=== PATIENT | female | born 1950 | race Caucasian/White ===

== ENCOUNTER 2017-04-10 13:26 | Observation (INO) | payer MEDICARE, MEDICAID ==
--- NOTE | 2017-04-10 14:02 | Emergency Department Record ---
History of Present Illness - General Chief Complaint: Dizziness Stated Complaint: DIZZINESS Time Seen by Provider: 04/10/17 13:41 Source: Patient Mode of Arrival: EMS Limitations: No limitations - History of Present Illness Initial Comments: The patient is here due to having a possible syncopal episode at home today just about an hour ago. She was feeling weak at home and had been in and out of the bathroom because she felt that she may need to have a BM or urinate and then woke up on the floor. The event was not witnessed. The patient had been feeling weak prior but denied any CP, SOB, ALMENDAREZ, or visual changes. After waking up the patient noticed she had been incontinent of urine and has had urinary pressure for a couple of weeks off and on. She denies any recent CP, SOB, ROBINSON, fever, or confusion. The patient does not think she hit her head with the event and denies any head pain or new neck pain. MD Complaint: Lightheadedness, Near syncope Onset/Timin -: Hour(s) Timing: Unsure Description: Other Improves With: Nothing Worsens With: Nothing Associated Symptoms: Weakness - [place] Coma Scale Eye Response: (4) Open spontaneously Motor Response: (6) Obeys commands Verbal Response: (5) Oriented Juan Pablo Total: 15 - Related Data Home Medications Medication Instructions Recorded Confirmed Last Taken Alprazolam 1 mg PO TID 04/10/17 04/10/17 04/10/17 Atenolol 100 mg PO DAILY 04/10/17 04/10/17 04/10/17 Atorvastatin Calcium [Lipitor] 20 mg PO DAILY 04/10/17 04/10/17 04/10/17 Cholecalciferol (Vitamin D3) 1,000 unit PO DAILY 04/10/17 04/10/17 04/10/17 [Vitamin D3] Clonidine HCl 0.2 mg PO DAILY 04/10/17 04/10/17 04/10/17 Clopidogrel Bisulfate [Clopidogrel] 75 mg PO DAILY 04/10/17 04/10/17 04/10/17 Hydrocodone/Acetaminophen [Sparks 1 each PO ASDIR 04/10/17 04/10/17 Unknown 10-325 Tablet] Spironolactone [Aldactone] 50 mg PO BID 04/10/17 04/10/17 04/10/17 Vilazodone HCl [Viibryd] 40 mg PO DAILY 04/10/17 04/10/17 04/10/17 Allergies Allergy/AdvReac Type Severity Reaction Status Date / Time amoxicillin [From Augmentin] Allergy PT UNSURE Verified 04/10/17 13:47 OF REACTION azithromycin [From Zithromax] Allergy PT UNSURE Verified 04/10/17 13:47 OF REACTION clavulanic acid Allergy PT UNSURE Verified 04/10/17 13:47 [From Augmentin] OF REACTION epinephrine Allergy PT UNSURE Verified 04/10/17 13:47 OF REACTION Iodinated Contrast- Oral and Allergy PT UNSURE Verified 04/10/17 13:47 IV Dye OF REACTION Sulfa (Sulfonamide Allergy PT UNSURE Verified 04/10/17 13:47 Antibiotics) OF REACTION Travel Screening - Travel/Exposure Within Last 30 Days Have you traveled within the last 30 days?: No Review of Systems Constitutional: Denies: Chills, Fever Eyes: Denies: Eye discharge ENT: Denies: Congestion Respiratory: Denies: Cough, Dyspnea Past Medical History - SOCIAL HISTORY Smoking Status: Current every day smoker Alcohol Use: Occasional Drug Use: None - RESPIRATORY Hx Respiratory Disorders: No - CARDIOVASCULAR Hx Cardio Disorders: Yes Hx Chest Pain: Yes (unstable angina) Hx Hypertension: Yes Comment:: CAD, high cholesterol - NEURO Hx Neuro Disorders: Yes Hx Seizures: Yes - GI Hx GI Disorders: Yes Hx Reflux: Yes - Hx Genitourinary Disorders: Yes Comment:: incontinent; frequency x 2weeks - ENDOCRINE Hx Endocrine Disorders: No - MUSCULOSKELETAL Hx Musculoskeletal Disorders: Yes Hx Arthritis: Yes - PSYCH Hx Psych Problems: Yes Hx Anxiety: Yes Hx Depression: Yes - HEMATOLOGY/ONCOLOGY Hx Hematology/Oncology Disorders: No Family Medical History Any Significant Family History?: Yes Hx Cancer: Brother/Sister Hx Heart Disease: Father, Mother Physical Exam - General General Appearance: Alert, Oriented x3, Cooperative, No acute distress - Head Head exam: Atraumatic, Normocephalic, Normal inspection - Eye Eye exam: Normal appearance, PERRL - ENT Throat exam: Normal inspection. negative: Tonsillar erythema, Tonsillar exudate - Neck Neck exam: Normal inspection, Full ROM. negative: Tenderness - Respiratory Respiratory exam: Normal lung sounds bilaterally. negative: Respiratory distress - Cardiovascular Cardiovascular Exam: Regular rate, Normal rhythm, Normal heart sounds - GI/Abdominal GI/Abdominal exam: Soft, Normal bowel sounds. negative: Tenderness - Extremities Extremities exam: Normal inspection, Full ROM, Normal capillary refill. negative: Tenderness - Neurological Neurological exam: Alert, Oriented X3. negative: Altered, Motor sensory deficit - Psychiatric Psychiatric exam: negative: Anxious, Depressed - Skin Skin exam: negative: Rash Course Vital Signs 04/10/17 13:38 Temperature 97.7 F Pulse Rate 72 Respiratory 16 Rate Blood Pressure 137/72 Pulse Ox 99 - Reevaluation(s) Reevaluation #1: The patient is doing very well at this time. She is resting comfortably and denies any CP, SOB, ALMENDAREZ or ROBINSON. I did discuss the lab and EKG results with her and the need for admission and she does agree. 04/10/17 15:10 Medical Decision Making - Data Complexity MDM Data: Labs Ordered and/or Reviewed, X-Ray Ordered and/or Reviewed, EKG Ordered and/or Reviewed - Lab Data Result diagrams: 04/10/17 14:15 04/10/17 14:15 - EKG Data -: EKG Interpreted by Me EKG: No Acute Changes, Unchanged From Previous - Radiology Data Radiology results: Report reviewed (Head CT: Neg for any acute changes. CXR: Neg for acute changes.) Disposition Disposition: Admit Clinical Impression: Syncope and collapse Disposition: Still a Patient at [facility] Decision to Admit: Admit from ER Decision to Admit Date: 04/10/17 Decision to Admit Time: 15:48 Accepting Physician: Marylin Time Discussed w/Accepting Physician: 15:48 Condition: (2) Stable Time of Disposition: 15:48 Quality - Quality Measures Quality Measures: N/A - Blood Pressure Screening View Details: Yes Does Patient Have Any of the Following: No Blood Pressure Classification: Pre-Hypertensive BP Reading Systolic Measurement: 137 Diastolic Measurement: 72 Screening for High Blood Pressure: < Pre-Hypertensive BP, F/U Documented > [ [id number]] Pre-Hypertensive Follow-up Interventions: Referral to alternative/primary care provider.
[2017-04-10 14:31] LABS: URINE APPEARANCE SL CLOUDY; URINE BILIRUBIN SMALL (NEGATIVE); URINE BLOOD TRACE-I (NEGATIVE); URINE COLOR YELLOW; URINE GLUCOSE (UA) NEGATIVE (NEGATIVE); URINE KETONE TRACE (NEGATIVE); URINE LEUKOCYTE ESTERASE TRACE (NEGATIVE); URINE NITRITE NEGATIVE (NEGATIVE); URINE PROTEIN TRACE (NEGATIVE)
[2017-04-10 14:35] LABS: EOS % 2.6 % (0-6); GRAN % 57.5 % (47-80); HEMATOCRIT 41.9 % (35.0-47.0); HEMOGLOBIN 14.1 gm/dl (11.6-16.0); LYMPH % 30.5 % (16-45); MEAN CELL VOLUME 99.3 fl (81-97); MEAN CORPUSCULAR HEMOGLOBIN 33.4 pg (27-33); MEAN CORPUSCULAR HGB CONC 33.7 g/dl (32-36); MEAN PLATELET VOLUME 11.2 fl (7.4-10.4); MONO % 8.4 % (0-9); PLATELET COUNT 256 K/uL (130-400); RED BLOOD COUNT 4.22 M/uL (3.80-5.40); RED CELL DISTRIBUTION WIDTH 12.6 % (11.5-14.5); WHITE BLOOD COUNT W/O DIFF 6.2 K/uL (4.2-12.2)
[2017-04-10] MEDS ORDERED: 0.9 % SODIUM CHLORIDE 1,000 ML BAG IV ONE (14:44)
[2017-04-10 14:46] LABS: BLOOD UREA NITROGEN 8 mg/dL (8-23); CREATININE 0.7 mg/dL (0.5-0.9); EST GLOMERULAR FILTRATION RATE > 60 mL/min
[2017-04-10 14:47] LABS: TOTAL PROTEIN 6.2 g/dL (6.6-8.7)
[2017-04-10 14:48] LABS: INR 0.99; PARTIAL THROMBOPLASTIN TIME 27.2 SECONDS (24.5-39.1); PROTHROMBIN TIME (PATIENT) 10.7 SECONDS (9.5-12.1)
[2017-04-10 14:49] LABS: GLUCOSE,RANDOM 79 mg/dL (74-109)
[2017-04-10 14:51] LABS: ALT/SGPT 14 U/L (<33); AST/SGOT 23 U/L (10.0-35.0)
[2017-04-10 14:52] LABS: ALB/GLOB RATIO 1.2 (1.1-1.8); ALBUMIN 3.4 g/dL (4.0-5.0); ALKALINE PHOSPHATASE 82 U/L (35-104); CREATINE PHOSPHOKINASE 70 U/L (26-192)
[2017-04-10 15:04] LABS: CKMB 5.1 ng/mL (<3.77)
[2017-04-10] MEDS ORDERED: NITROFURANTOIN MONO 100 MG CAPSULE PO ONE (15:11)
[2017-04-10 17:01] LABS: URINE BACTERIA 2+
[2017-04-10] MEDS ORDERED: ALPRAZOLAM 1 MG PO SCH (17:18)
[2017-04-10] MEDS ORDERED: HYDROCODONE/APAP 10/325 TABLET PO SCH (17:18)
[2017-04-10] MEDS: ASPIRIN 325 MG TAB ENTERIC-COATED PO SCH (17:36)
[2017-04-10 19:53] LABS: CKMB 5.3 ng/mL (<3.77)
[2017-04-10] MEDS ORDERED: SPIRONOLACTONE 50 MG PO SCH (22:00)
[2017-04-10] MEDS: SPIRONOLACTONE 25 MG TAB PO SCH (22:13)
[2017-04-10] MEDS: ALPRAZOLAM 1 MG TAB PO SCH (22:14)
[2017-04-10] MEDS: NITROFURANTOIN MONO 100 MG CAPSULE PO SCH (22:14)
[2017-04-11 03:22] LABS: CKMB 4.2 ng/mL (<3.77)
--- NOTE | 2017-04-11 07:17 | RADIOLOGY REPORT ---
EXAM: AP CHEST HISTORY: ACUTE DIFFICULTY BREATHING. TECHNIQUE: AP view of the chest was obtained. Comparison: None. FINDINGS: Sternal wires are present. Vascular stent overlies the upper mediastinum. The lungs are clear. The cardiac silhouette and diaphragm are unremarkable. Osteopenia. IMPRESSION: NO ACUTE INTRATHORACIC PROCESS. JOB NUMBER: [id number] MTDD
--- NOTE | 2017-04-11 07:21 | CT SCAN REPORT ---
EXAM: HEAD CT WITHOUT CONTRAST HISTORY: SEIZURE. TECHNIQUE: Contiguous axial images were obtained from the cerebral convexities to the foramen magnum were obtained without contrast. Comparison: None. Encounter: Initial. Hand dominance: Right. FINDINGS: The brain volume is normal. No acute intracranial hemorrhage, mass effect, or midline shift. No CT evidence of acute infarct. Mild decreased attenuation in the subcortical and periventricular white matter of the cerebral hemispheres. The ventricles, basal cisterns and sulci are within normal limits. The osseous structures, soft tissues, and paranasal sinuses are unremarkable. IMPRESSION: 1. NO ACUTE INTRACRANIAL PROCESS. 2. MILD CHRONIC SMALL VESSEL ISCHEMIC CHANGE. JOB NUMBER: [id number] MTDD
--- NOTE | 2017-04-11 08:18 | Discharge Note ---
VTE H&P Assessment - Risk for VTE Risk for VTE: No Risk Level: Very Low Risk Assessment Date: 04/11/17 Risk Assessment Time: 08:13 VTE Orders Placed or Will Be Placed: No VTE Reason for No Prophylaxis: Not Indicated Discharge Medications - Discharge Medications Prescriptions: Meclizine HCl [Antivert] 12.5 mg PO Q8H #20 tablet Nitrofurantoin [place] [Macrobid] 100 mg PO BID #20 capsule Home Medications: Ambulatory Orders Alprazolam 1 mg PO TID 04/10/17 [Last Taken 04/10/17] Atenolol 100 mg PO DAILY 04/10/17 [Last Taken 04/10/17] Atorvastatin Calcium [Lipitor] 20 mg PO DAILY 04/10/17 [Last Taken 04/10/17] Cholecalciferol (Vitamin D3) [Vitamin D3] 1,000 unit PO DAILY 04/10/17 [Last Taken 04/10/17] Clonidine HCl 0.2 mg PO DAILY 04/10/17 [Last Taken 04/10/17] Clopidogrel Bisulfate [Clopidogrel] 75 mg PO DAILY 04/10/17 [Last Taken 04/10/17 ] Hydrocodone/Acetaminophen [Bliss 10-325 Tablet] 1 each PO ASDIR 04/10/17 [Last Taken Unknown] Spironolactone [Aldactone] 50 mg PO BID 04/10/17 [Last Taken 04/10/17] Vilazodone HCl [Viibryd] 40 mg PO DAILY 04/10/17 [Last Taken 04/10/17] Meclizine HCl [Antivert] 12.5 mg PO Q8H #20 tablet 04/11/17 [Last Taken Unknown] Nitrofurantoin [place] [Macrobid] 100 mg PO BID #20 capsule 04/11/17 [Last Taken Unknown] Discharge Note - Date Date of Discharge Note: 04/11/17 Disposition: Home, Self-Care Condition: (2) Stable Instructions: Dizziness (ED) Additional Instructions: follow up with [employer] school operations manager in [place] in one week for further evaluation follow up with Dr. Garrido in [place] in one week take antivert 12.5 mg Three times a day continue her home medications wear a holter for 24 hours Referrals: [facility] Specialty Clinics [Provider Group] Forms: Patient Portal Access Activity at Discharge: Increase Activity as Tolerated Diet at Discharge: Low Salt Diet
[2017-04-11] MEDS ORDERED: HYDROCODONE/APAP 10/325 TABLET PO PRN (09:00)
[2017-04-11] MEDS: ALPRAZOLAM 1 MG TAB PO SCH ×2 (09:38→15:14)
[2017-04-11] MEDS: SPIRONOLACTONE 25 MG TAB PO SCH (09:41)
[2017-04-11] MEDS: ASPIRIN 325 MG TAB ENTERIC-COATED PO SCH (09:42)
[2017-04-11] MEDS: NITROFURANTOIN MONO 100 MG CAPSULE PO SCH (09:42)
[2017-04-11] MEDS ORDERED: ATENOLOL 100 MG PO SCH (10:00)
[2017-04-11] MEDS ORDERED: CLONIDINE HCL 0.1 MG TABLET PO SCH (10:00)
[2017-04-11] MEDS ORDERED: Non-Formulary MISC (Clonidine Hcl [Clonidine Hcl] 0.2 MG) PO SCH (10:00)
[2017-04-11] MEDS ORDERED: CLOPIDOGREL 75MG TABLET PO SCH (10:00)
[2017-04-11] MEDS ORDERED: VIIBRYD 40 MG PO SCH (10:00)
[2017-04-11] MEDS ORDERED: VILAZODONE HCL 40 MG PO SCH (10:00)
[2017-04-11] MEDS ORDERED: ATENOLOL 50 MG TABLET PO SCH (10:00)
[2017-04-11] MEDS ORDERED: ATORVASTATIN 20 MG TABLET PO SCH (10:00)
--- NOTE | 2017-04-11 10:51 | Discharge Summary ---
OBSERVATION PATIENT DATE OF ADMISSION: 04/10/2017 DATE OF DISCHARGE: 04/11/2017 at 8:23 a.m. DISCHARGE DIAGNOSES: 1. Vasovagal syncope. 2. Benign postural vertigo. 3. Incidental urinary tract infection found on urine, asymptomatic. 4. History of coronary artery disease. 5. History of chronic back pain on [place] and Xanax. ATTENDING PHYSICIAN: Doroteo Coulter DO REASON FOR HOSPITALIZATION: This 66-year-old female presented to the Emergency Department after a syncopal episode. She was complaining of dizziness. She got up about 11:30 yesterday morning. She got up to go to the bathroom. When she was in the bathroom, she passed out. She said she had a full bladder, and she was trying to get to the bathroom. The daughter found her in the bathroom, and she was incontinent of urine. She came to the Emergency Department by ambulance, evaluated by Dr. Molina, admitted to the hospital for further evaluation of syncope. She denied any chest pain, shortness of breath, headache or visual changes. No head trauma per the patient, but because of the episode, she had a CT in the Emergency Department with a head CT, which was negative. She had no neck pain. She was admitted with a diagnosis of syncope and collapse. SIGNIFICANT FINDINGS: EKG showing a similar EKG tracing to the one in 2015 at [facility]. She has T-wave inversions at 2, 3, AVF with T-wave inversions in V4, V5, and V6, possibly some ST depression in those leads. She had 2 EKGs in our hospital, which were the same. Cardiac enzymes x 2 were negative. She denies any chest pain. She stated that her balance was off in the 24 hours where if she gets up, her balance seems to be off, like she has got a spinning sensation. She also has a history of chronic back pain, using [place] 10 mg 3 or 4 times a day and Xanax 1 mg 3 times a day. She is being monitored by Dr. Garrido in [place] as her primary doctor. Her manager heart failure is with [facility]. She was placed in the hospital for cardiac monitoring, which was negative on the monitor. There were no abnormal rhythm strips. She was feeling better, walking to the bathroom without difficulties on my evaluation. CONDITION AT DISCHARGE: Improved, but she does feel a little bit off she says. I advised her to drink more fluids and use Antivert 12.5 three times a day as needed for the balance problem. Will also send her home with a Holter monitor and follow up with her manager heart failure and her primary physician in 1 week to be reassessed to see if any more testing needs to be done. DISCHARGE INSTRUCTIONS: Follow up with Dr. Garrido in 1 week. Follow up with [facility] in 1 week if possible. Holter monitor for 24 hours. Antivert 12.5 mg t.i.d. Continue her home medications of [place] 10 mg 4 times a day, Viibryd 40 mg daily, Aldactone 50 mg b.i.d., Plavix 75 mg daily, clonidine 0.2 mg daily, vitamin D3 1000 units daily, calcium 20 mg daily, atenolol 100 mg daily, Xanax 1 mg t.i.d., nitrofurantoin 100 mg b.i.d. as a new prescription for urinary tract infection which an incidental UTI was found, Antivert 12.5 mg every 8 hours p.r.n. balance problems or spinning sensation. JAYA
--- NOTE | 2017-04-11 10:51 | History and Physical Report ---
DATE OF EVALUATION: 04/11/2017 DATE OF ADMISSION: 04/10/2017 CHIEF COMPLAINT: Syncope. HISTORY OF THE CHIEF COMPLAINT: This 66-year-old female woke up having to go to the bathroom with a very full bladder, and possibly even having a bowel movement. She got to the bathroom and passed out in the bathroom and was incontinent of urine. She came in by ambulance, was evaluated by Dr. Molina, and was admitted to the hospital for cardiac monitoring and further evaluation. She had a CT of the head in the Emergency Department, which was negative. PAST MEDICAL HISTORY: Coronary artery disease, coronary artery bypass grafting in 1997, stent placed in the heart in 2013, chronic back pain on Barry and Xanax, anxiety problems, and in the Emergency Department, a urine was obtained, which showed an incidental urinary tract infection. She did not have any symptoms of dysuria. PAST SURGICAL HISTORY: Coronary artery bypass grafting in 1997, arthroscopic surgery of the knee and back, 2 disks removed from her neck, so she must have had both neck and back surgery, and cardiac stents placed 3 years ago in 2013. MEDICATIONS ON ADMISSION: Barry 10 mg 4 times a day, Viibryd 40 mg daily, Aldactone 50 mg b.i.d., Plavix 75 mg daily, clonidine 0.2 mg daily, vitamin D3 1000 units daily, Lipitor 20 mg daily, atenolol 100 mg daily, Xanax 1 mg t.i.d. I believe she stopped the Viibryd because of side effects. Will start her on Macrobid (nitrofurantoin) 100 mg b.i.d. for 10 days and meclizine 12.5 mg t.i.d. p.r.n. balance and spinning sensation. ALLERGIES: Amoxicillin, azithromycin, Augmentin, epinephrine, iodinated contrast, and sulfa. FAMILY PSYCHOSOCIAL HISTORY: She smokes a half-pack a day. Occasional alcohol use. No illegal drug use. She sees her primary doctor monthly for her chronic back pain. Brother and sister had cancer. Father had heart disease. Mother had heart disease. REVIEW OF SYSTEMS: HEENT: No upper respiratory infection symptoms, cough, cold, or congestion. Cardiovascular: No chest pain, palpitations, or arrhythmias. Respiratory: No cough, cold or congestion. Gastrointestinal: No nausea, vomiting, diarrhea, black stools, or bloody stools. Genitourinary: No dysuria, hematuria, frequency, or burning on urination; however, urine showed an incidental UTI. Musculoskeletal: No joint or bony abnormalities. Neurologic: No CVA, paralysis, or paresthesias. She did have syncope. See Chief Complaint. Endocrine: No diabetes or thyroid disease. Integument: No rash, ulcers, changes in moles, or yellow skin. PHYSICAL EXAMINATION: VITAL SIGNS: Height 5'5'. Weight 136 pounds. Temperature 98.5. Pulse 64. Blood pressure 138/86. Respiratory rate 16. Pulse ox 94% on room air. HEENT: Pupils equal, round, and reactive to light and accommodation. Extraocular muscles intact. Throat is clear. Nose is clear. Tympanic membranes hernandez. NECK: Supple. No jugular venous distention. No hepatojugular reflux. No carotid bruits. Thyroid is smooth. CARDIOVASCULAR: Regular rate and rhythm without murmurs, clicks, rubs, or gallops. RESPIRATORY: Clear to auscultation and percussion. ABDOMEN: Soft, nontender, no hepatosplenomegaly. No masses or tenderness. Bowel sounds active. No bruits. EXTREMITIES: No pitting edema. No cyanosis or clubbing. Full range of motion. Peripheral pulses good. BREASTS: Deferred. GYNECOLOGIC: Deferred. RECTAL: Deferred. NEUROLOGIC: Cranial nerves II-XII intact. No gross deficits. Sensation normal. Strength normal. Deep tendon reflexes equal bilaterally. Babinski is negative. MENTAL STATUS: Alert and oriented x3. IMPRESSION: 1. Syncope. 2. Vasovagal syncope. 3. Vertigo. 4. Urinary tract infection, incidental finding. 5. History of coronary artery disease. 6. History of chronic back pain. PLAN: Cardiac monitoring, serial cardiac enzymes, serial EKGs, further evaluation. [facility]
[2017-04-11] MEDS: CLONIDINE HCL 0.1 MG TABLET PO SCH ×2 (15:14→15:18)
== END 2017-04-11 16:50 | disposition home or self-care (01) ==
LOC: ER 13:26 → MEDSURG 17:12
PROVIDERS: ADMIT Emergency Medicine; ATTEND Emergency Medicine
DX: R55 Syncope and collapse (principal); I25.810 Atherosclerosis of coronary artery bypass graft(s) without angina pectoris; I25.2 Old myocardial infarction; E78.00 Pure hypercholesterolemia, unspecified; F41.9 Anxiety disorder, unspecified; F17.210 Nicotine dependence, cigarettes, uncomplicated; N39.0 Urinary tract infection, site not specified
CPT/HCPCS: 93041; 99285 ×2; 82550; 85025; 85730; 85610; 82553 ×2; 80053; 81001; 84484 ×2; 71010; 70450; 93005 ×2; 93225; 93226; 93010; G0378 ×2; G0480; J3490 ×2; 80320; 99220; J7030